=== PATIENT | female | born 1955 | race Caucasian/White ===

== ENCOUNTER 2016-06-02 11:51 | Day surgery (SDC) | payer OTHER ==
[~2016-06-02] VITALS: Ht 160 cm; Wt 105.0 kg
== END 2016-06-02 12:31 | disposition home or self-care (01) ==
LOC: RAD.S 11:51 → SSS 13:00 → EDSTATUS 13:00
DX: M25.511 Pain in right shoulder (principal); Z53.8 Procedure and treatment not carried out for other reasons; Z90.710 Acquired absence of both cervix and uterus

== ENCOUNTER 2016-06-25 05:48 | Day surgery (SDC) | payer OTHER ==
[~2016-06-25] VITALS: Ht 160 cm; Wt 104.3 kg
== END 2016-06-25 09:40 | disposition home or self-care (01) ==
LOC: SSS 05:48 → EDSTATUS 07:45 → SSS 09:40
DX: M19.011 Primary osteoarthritis, right shoulder (principal); M77.9 Enthesopathy, unspecified; K21.9 Gastro-esophageal reflux disease without esophagitis; E66.9 Obesity, unspecified; F17.200 Nicotine dependence, unspecified, uncomplicated; Z79.899 Other long term (current) drug therapy; Z90.710 Acquired absence of both cervix and uterus